=== PATIENT | male | born 1955 | race Caucasian/White ===

== ENCOUNTER 2018-05-29 00:18 | Emergency (ER) | payer OTHER ==
[~2018-05-29] VITALS: Ht 165.1 cm; Wt 77.3 kg
[~2018-05-29 00:18] MED LIST: CEPH500 PO; SULF-168 PO
[2018-05-29] MEDS ORDERED: METH10SO PO (00:26)
[2018-05-29] MEDS ORDERED: SULFAMETHOX/TRIMETH DS 800-160 MG/TABLET PO ONE (01:15)
[2018-05-29] MEDS ORDERED: CEPHALEXIN MONOHYDRATE 500 MG CAPSULE PO ONE (01:15)
[2018-05-29 02:05] VITALS: BP 141/87
== END 2018-05-29 02:05 | disposition home or self-care (01) ==
LOC: EMS 00:19
DX: L03.116 Cellulitis of left lower limb (principal); I10 Essential (primary) hypertension; F17.210 Nicotine dependence, cigarettes, uncomplicated; F11.90 Opioid use, unspecified, uncomplicated; Z79.899 Other long term (current) drug therapy
CPT/HCPCS: 99283

== ENCOUNTER 2020-05-29 13:48 | Emergency (ER) | payer MEDICARE, OTHER ==
[~2020-05-29] VITALS: Ht 170.2 cm; Wt 77.3 kg
[~2020-05-29 13:48] MED LIST changes: -CEPH500 PO; +METH10 PO; -SULF-168 PO
[2020-05-29 15:40] LABS: BASOPHILS % (AUTO) 0.6 % (0.0-2.0); HEMATOCRIT 32.3 % (41-53); HEMOGLOBIN 10.3 g/dL (13.5-17.5); LYMPHOCYTES # (AUTO) 1.2 K/uL (1.0-4.8); LYMPHOCYTES % (AUTO) 12.4 % (22.0-44.0); MEAN CORPUSCULAR HEMOGLOBIN 25.6 pg (26.0-34.0); MEAN CORPUSCULAR HGB CONC 31.9 G/dL (31.0-37.0); MEAN CORPUSCULAR VOLUME 80 fL (80-100); MONOCYTES # (AUTO) 0.7 K/uL (0.1-1.0); MONOCYTES % (AUTO) 7.5 % (2.0-9.0); NEUTROPHILS # (AUTO) 7.3 K/uL (1.8-7.7); NEUTROPHILS % (AUTO) 76.5 % (40.0-70.0); PLATELET COUNT (AUTO) 237 K/uL (150-450); RED BLOOD CELL COUNT(AUTO) 4.03 MIL/uL (4.50-5.90); RED CELL DISTRIBUTION WIDTH 17.2 % (11.5-14.5)
[2020-05-29 16:50] LABS: CALCIUM, TOTAL 8.8 mg/dL (8.8-10.5); CREATININE 1.26 mg/dL (0.60-1.30); POTASSIUM 3.9 mmol/L (3.5-5.1)
[2020-05-29 16:54] LABS: BILIRUBIN,TOTAL 0.3 mg/dL (0.1-1.0); TOTAL PROTEIN, SERUM 8.6 g/dL (6.4-8.2)
[2020-05-29 17:12] VITALS: BP 179/103
== END 2020-05-29 17:16 | disposition home or self-care (01) ==
LOC: EMS 13:49
DX: S93.402A Sprain of unspecified ligament of left ankle, initial encounter (principal); F11.20 Opioid dependence, uncomplicated; X50.9XXA Other and unspecified overexertion or strenuous movements or postures, initial encounter; Y93.89 Activity, other specified; Y92.89 Other specified places as the place of occurrence of the external cause; Y99.8 Other external cause status
CPT/HCPCS: 80074; 36415-L1; 36415-TC; 71045-TC

== ENCOUNTER 2020-11-08 16:42 | Emergency (ER) | payer MEDICARE, OTHER ==
[~2020-11-08] VITALS: Ht 165.1 cm; Wt 68.2 kg
[2020-11-08 16:49] VITALS: BP 151/83
[2020-11-08] MEDS ORDERED: CLON0.2T PO (16:58)
[2020-11-08] MEDS ORDERED: DICL50TA9 PO (16:58)
[2020-11-08] MEDS ORDERED: LOSA-30 PO (16:58)
[2020-11-08] MEDS ORDERED: RIFA300 PO (16:58)
[2020-11-08] MEDS ORDERED: METO-558 PO (16:58)
[2020-11-08] MEDS ORDERED: GABA-1181 PO (16:58)
== END 2020-11-08 18:22 | disposition home or self-care (01) ==
LOC: EMS 16:42
DX: B86 Scabies (principal); I10 Essential (primary) hypertension; F11.90 Opioid use, unspecified, uncomplicated; F12.90 Cannabis use, unspecified, uncomplicated; F15.90 Other stimulant use, unspecified, uncomplicated
CPT/HCPCS: 99283; Z7502

== ENCOUNTER 2021-02-16 15:16 | Emergency (ER) | payer MEDICARE, OTHER ==
[~2021-02-16] VITALS: Ht 162.6 cm; Wt 81.8 kg
[~2021-02-16 15:16] MED LIST changes: +CLON0.2T PO; +DICL50TA9 PO; +GABA-1181 PO; +LOSA-30 PO; -METH10 PO; +METO-558 PO; +RIFA300 PO
[2021-02-16] MEDS ORDERED: PIPERACILLIN/TAZO 3.375 GM/D5W 50 ML IV ONE (16:00)
[2021-02-16] MEDS ORDERED: VANCOMYCIN HCL 1.5 GM in DEXTROSE 5%-WATER 250 ML IV ONE (16:00)
[2021-02-16] MEDS ORDERED: SODIUM CHLORIDE 0.9% 2,450 ML IV ONE (16:00)
[2021-02-16 16:13] LABS: HEMATOCRIT 30.1 % (41-53); HEMOGLOBIN 9.5 g/dL (13.5-17.5); MEAN CORPUSCULAR HEMOGLOBIN 23.7 pg (26.0-34.0); MEAN CORPUSCULAR HGB CONC 31.6 G/dL (31.0-37.0); MEAN CORPUSCULAR VOLUME 75 fL (80-100); PLATELET COUNT (AUTO) 351 K/uL (150-450); RED BLOOD CELL COUNT(AUTO) 4.02 MIL/uL (4.50-5.90); RED CELL DISTRIBUTION WIDTH 17.6 % (11.5-14.5)
[2021-02-16 16:14] LABS: COVID AG,FIA SOURCE NASOPHARYNGEAL
[2021-02-16 16:16] LABS: APPEARANCE,URINE CLEAR (CLEAR); BILIRUBIN,URINE NEGATIVE (NEGATIVE); GLUCOSE, URINE (UA) NEGATIVE (NEGATIVE); KETONES,URINE NEGATIVE (NEGATIVE); LEUKOCYTE ESTERASE ,URINE NEGATIVE (NEGATIVE); NITRATE,URINE NEGATIVE (NEGATIVE); OCCULT BLOOD,URINE NEGATIVE (NEGATIVE); PH,URINE 5.5 (5.0-8.0); PROTEIN,URINE NEGATIVE (NEGATIVE)
[2021-02-16 16:21] LABS: AMPHET/METH SCREEN,URINE POSITIVE (NEGATIVE); BARBITURATE SCREEN, URINE NEGATIVE (NEGATIVE); BENZODIAZEPINES SCREEN,URINE NEGATIVE (NEGATIVE); CANNABINOID SCREEN,URINE NEGATIVE (NEGATIVE); COCAINE SCREEN,URINE NEGATIVE (NEGATIVE); METHADONE SCREEN, URINE NEGATIVE (NEGATIVE); OPIATE SCREEN,URINE POSITIVE (NEGATIVE); PHENCYCLIDINE SCREEN,URINE NEGATIVE (NEGATIVE)
[2021-02-16 16:24] LABS: CALCIUM, TOTAL 8.4 mg/dL (8.8-10.5); CREATININE 1.2 mg/dL (0.60-1.30); POTASSIUM 3.4 mmol/L (3.5-5.1)
[2021-02-16 16:27] LABS: BACTERIA,URINE Rare /HPF (None Seen); RBC,URINE 0-2 /HPF (0-2); SQUAMOUS EPITHELIAL CELL,UR Rare /LPF (None Seen); WBC,URINE 0-2 /HPF (0-5)
[2021-02-16] MEDS ORDERED: MORPHINE SULFATE 4 MG/ML SYRINGE IVP ONE (16:30)
[2021-02-16 16:31] LABS: ALBUMIN 2.6 g/dL (3.4-5.0); BILIRUBIN,TOTAL 0.4 mg/dL (0.1-1.0); TOTAL PROTEIN, SERUM 8.3 g/dL (6.4-8.2)
[2021-02-16 16:32] LABS: LACTIC ACID 1.5 mmol/L (0.4-2.0)
[2021-02-16 16:37] LABS: BAND NEUTROPHILS % (MANUAL) 7 % (0-5); BASOPHILS % (MANUAL) 1 % (0-2); LYMPHOCYTES % (MANUAL) 6 % (22-44); MONOCYTES % (MANUAL) 3 % (2-9); SEGMENTED NEUTROPHILS % 83 % (40-70)
[2021-02-16] MEDS ORDERED: SODIUM CHLORIDE 0.9% 100 ML ONE (16:56)
[2021-02-16] MEDS ORDERED: IOHEXOL 350 MG/ML 100 ML VIAL ONE (16:56)
[2021-02-16] MEDS ORDERED: ACETAMINOPHEN 325 MG TABLET PO ONE ×2 (17:00→20:30)
[2021-02-16] MEDS ORDERED: FentaNYL CITRATE PF 100 MCG/2 ML VIAL IVP ONE (17:45)
[2021-02-16] MEDS ORDERED: RINGERS SOLUTION,LACTATED 1,000 ML IV ONE (19:45)
[2021-02-16 23:02] VITALS: BP 114/74
== END 2021-02-17 01:14 | disposition left against medical advice (07) ==
LOC: EMS 15:19
DX: A41.9 Sepsis, unspecified organism (principal); F11.20 Opioid dependence, uncomplicated; L02.415 Cutaneous abscess of right lower limb; I10 Essential (primary) hypertension; F17.210 Nicotine dependence, cigarettes, uncomplicated; F12.90 Cannabis use, unspecified, uncomplicated; F19.90 Other psychoactive substance use, unspecified, uncomplicated; G89.29 Other chronic pain; Z20.822 Contact with and (suspected) exposure to COVID-19
CPT/HCPCS: 36415; 71045; 73701; 80053; 80307; 81001; 83605; 83880; 84484; 85025; 87040; 87426; 93005; 96361; 96365; 96366; 96367; 96375; 99291; A9575; G0480; J2270; J2543; J3010; J3370; J7030; J7050; J7060; J7120; U0003